=== PATIENT | female | born 1945 | race Caucasian/White ===

== ENCOUNTER 2020-02-25 07:41 | Outpatient (CLI) | payer OTHER ==
[~2020-02-25 07:41] MED LIST: ADULT ASPIRIN81 MG PO; IBUPROFEN800 MG PO; INTEGRA PLUS C1 EACH PO; METFORMIN HCL500 MG PO; OXYC1TAB9 PO; SULFAMETHOXAZOL1 TA5 PO; VASOTEC2.5 MG; XARELTO10 MG PO; ZANTAC150 M3 PO; ZANTAC300 MG PO; ZOCOR5 MG PO; ZYNCOF 20-400120 ML PO
[2020-03-02] MEDS ORDERED: FORTAMET1000 MG PO (13:27)
[2020-03-02] MEDS ORDERED: VITAMIN D310 MCG/1 M PO (13:28)
== END 2020-02-25 18:00 | disposition home or self-care (01) ==
LOC: EKG 07:41
PROVIDERS: ATTEND Anesthesiology Pain Medicine
DX: Z20.828 Contact with and (suspected) exposure to other viral communicable diseases (principal); I10 Essential (primary) hypertension; M99.43 Connective tissue stenosis of neural canal of lumbar region; M99.73 Connective tissue and disc stenosis of intervertebral foramina of lumbar region

== ENCOUNTER 2020-03-17 06:42 | Day surgery (SDC) | payer OTHER ==
[~2020-03-17 06:42] MED LIST changes: +FORTAMET1000 MG PO; +VITAMIN D310 MCG/1 M PO
== END 2020-03-17 11:20 | disposition home or self-care (01) ==
LOC: CIR.AMB 06:42
PROVIDERS: ATTEND Anesthesiology Pain Medicine
DX: M51.26 Other intervertebral disc displacement, lumbar region (principal); Z20.828 Contact with and (suspected) exposure to other viral communicable diseases